=== PATIENT | female | born 1990 | race American Indian/Alaskan Native ===

== ENCOUNTER 2018-04-12 06:49 | Emergency (ER) | payer SELFPAY ==
[2018-04-12 07:12] VITALS: BP 115/73
--- NOTE | 2018-04-12 07:40 | Emergency Department Report ---
HPI - General Chief Complaint: Sore Throat Time Seen by Provider: 04/12/18 07:39 - HPI HPI: This is 27-year-old patient here complaining of a sore throat 2 days with white pus on her tonsils. She denies any fever but reports chills and so she took some Motrin this morning before she came to the emergency room. Denies any nausea or vomiting. Denies any drooling. Denies any cough, runny nose or congestion. Denies any chest pain, wheezing. Denies any nausea or vomiting or shortness of breath. Denies any neck pain or stiffness. Denies any abdominal pain but reports slight headache . Painful throat and had this for over/10 . Pain is achy and throat pain is worse with swallowing. No alleviating factors . Patient states that she has had strep in the past with similar presentation. ED Past Medical Hx - Past Medical History Previous Medical History?: No - Surgical History Past Surgical History?: No - Family History Family history: hypertension - Social History Smoking Status: Current Every Day Smoker Substance Use Type: None - Medications Home Medications: Home Medications Medication Instructions Recorded Confirmed Last Taken Type Magnesium Citrate [Citrate of 296 ml PO ONCE #1 solution 08/17/14 Unknown Rx Magnesia] metroNIDAZOLE [Flagyl] 500 mg PO BID #14 tablet 08/17/14 Unknown Rx Acetaminophen/Codeine [Tylenol #3] 1 tab PO Q6H PRN #20 tab 05/19/15 Unknown Rx Cyclobenzaprine [Flexeril 10 MG 10 mg PO TID PRN #30 tablet 05/19/15 Unknown Rx TAB] Ibuprofen [Motrin] 600 mg PO Q8H PRN #40 tablet 05/19/15 Unknown Rx Clindamycin [Clindamycin CAP] 300 mg PO Q8H 10 Days #30 cap 04/12/18 Unknown Rx Ibuprofen [Motrin] 800 mg PO Q8HR PRN #15 tablet 04/12/18 Unknown Rx ED Review of Systems ROS: Stated complaint: SWOLLEN THROAT Other details as noted in HPI Constitutional: chills. denies: fever Eyes: denies: eye pain, eye discharge ENT: throat pain. denies: ear pain, congestion Respiratory: denies: cough, shortness of breath, SOB with exertion, SOB at rest , wheezing Cardiovascular: denies: chest pain, palpitations Gastrointestinal: denies: abdominal pain, nausea, vomiting Musculoskeletal: denies: back pain, joint swelling, arthralgia, myalgia Skin: denies: rash, lesions Neurological: headache. denies: weakness Physical Exam - Physical Exam Vital Signs: Vital Signs 04/12/18 07:05 Temperature 98.9 F Pulse Rate 101 H Respiratory 14 Rate Blood Pressure 115/73 O2 Sat by Pulse 100 Oximetry Vital Signs 04/12/18 04/12/18 07:05 09:22 Temperature 98.9 F Pulse Rate 101 H 84 Respiratory 14 Rate Blood Pressure 115/73 O2 Sat by Pulse 100 Oximetry General: This is a 27-year-old female well-nourished well-developed in no acute distress. She is nontoxic in appearance Physical Exam: Head: Normocephalic atraumatic Ears:BIateral normal exam .Turner EAC with normal exam. No mastoid bone tenderness. Mouth: Moist, positive pharyngeal erythema and exudate. No drooling noted. Tongue is normal and no trismus. Positive tonsillar enlargement at +2 with exudate .UVULA midline and oral airways patent. Mini-Neurological: Alert and oriented 3, normal gait. Speech is clear and fluid, GCS of 15 Neck: Nontender to palpate, supple, normal range of motion. Positive lymphadenopathy anterior cervical chain, bilateral. No c-spine tenderness. Nose: Bilateral nasal mucosa normal exam maxillary and frontal sinuses non- tender to palpate. Eyes: Bilateral Sclerae and conjunctiva without injection. Bilateral pupils equal and reactive to light. Bilateral lids are normal. Normal accommodation.BEOMI Lungs: Clear to auscultate bilaterally, no rhonchi wheezes or rales. Normal work of breathing and no chest wall tenderness CV: S1, S2. Tachycardia 101 . Regular rhythm Abdomen: Nontender to palpation in all quadrants: No guarding or rebound tenderness. Positive bowel sounds in all quadrants Extremity: No clubbing, cyanosis or edema. +2 pulses in all extremities and no neurovascular compromise Skin: Clean dry and intact, no rashes or lesions Please take antibiotic as prescribed Follow-up with primary care physician in 3 days If your condition worsens to include difficulty breathing, swallowing, chest pain, nausea and vomiting and fever, please return to the emergency room DAVID. Take Zyrtec and Flonase to relieve congestion Increasing fluid intake Use nasal saline wash to flush and nostrils. ED Course Vital Signs 04/12/18 07:05 Temperature 98.9 F Pulse Rate 101 H Respiratory 14 Rate Blood Pressure 115/73 O2 Sat by Pulse 100 Oximetry - Reevaluation(s) Reevaluation #1: 04/12/18 09:29 Patient given Motrin 800 mg emergency room for sore throat, Decadron 10 mg IM for swelling to the tonsils. She was given Maalox 15 mL with lidocaine 15 mL to swish and spit. Patient reports that her pain is much better. I gave her the option to be treated with Bicillin LA or oral antibiotic and she chose oral antibiotic. ED Medical Decision Making - Lab Data Lab Results 04/12/18 Range/Units 07:13 Group A Strep Rapid Negative (Negative) Cultures pending - Medical Decision Making Patient presents to emergency room with sore throat and chills. She has had strep in the past with similar presentation. Rapid strep test negative and cultures pending. Assessment/plan 1: Exudative pharyngitis-based on Centor criteria with oropharynx without exudate along with tonsil and erythema, enlarged lymph nodes to the neck, chills with headache and absent of cough, congestion or any other respiratory symptoms patient with strep and to be treated with antibiotic. She was given Motrin 800 mg in the emergency room and Maalox 15 mL with lidocaine 15 mL decisions. Motrin relieved her pain and she was given Decadron 10 mg IM to reduce swelling. Patient educated on medication, diagnosis, strep tests and I told her she needs to follow-up at [facility] in 4 days as she does not have a primary care doctor and she is in agreement. Patient's vital signs are stable she is afebrile and pain is better. Discharged home with prescription for clindamycin and Motrin. Critical care attestation.: If time is entered above; I have spent that time in minutes in the direct care of this critically ill patient, excluding procedure time. ED Disposition Clinical Impression: Exudative pharyngitis Disposition: - TO HOME OR SELFCARE Is pt being admited?: No Does the pt Need Aspirin: No Condition: Stable Instructions: Strep Throat (ED) Additional Instructions: Gargle with warm saltwater 3 times a day this will help to relieve symptoms of sore throat Motrin is prescribed for sore throat and/or fever Increase her fluid intake Take clindamycin 3 times a day for 10 days. Please return to emergency room, if your symptoms worsen otherwise follow-up with your PCP in 4 days. Prescriptions: Clindamycin [Clindamycin CAP] 300 mg PO Q8H 10 Days #30 cap Ibuprofen [Motrin] 800 mg PO Q8HR PRN #15 tablet PRN Reason: pain Referrals: [facility] [Outside] - 04/15/18
[2018-04-12] MEDS ORDERED: MOTRIN PO ONE (08:25)
[2018-04-12] MEDS ORDERED: ALUM-MAG HYDROX-SIMETH 200-200-20MG/5ML PO ONE (08:25)
[2018-04-12] MEDS ORDERED: LIDOCAINE VISCOUS 2% PO ONE (08:25)
[2018-04-12] MEDS ORDERED: DECADRON IM ONE (08:25)
== END 2018-04-12 09:42 | disposition home or self-care (01) ==
LOC: ED 06:49
DX: J02.9 Acute pharyngitis, unspecified (principal); F17.200 Nicotine dependence, unspecified, uncomplicated; Z79.899 Other long term (current) drug therapy
CPT/HCPCS: 87116; 87430; 96372; 99283; J1100